=== PATIENT | male | born 1980 | race Two or more races ===

== ENCOUNTER 2023-04-29 07:36 | Emergency (ER) | payer OTHER ==
[~2023-04-29] VITALS: Ht 167.6 cm; Wt 61.2 kg
[2023-04-29] MEDS ORDERED: ACETAMINOPHEN ES 500 MG TABLET PO ONE (08:00)
[2023-04-29] MEDS ORDERED: IBUPROFEN 600 MG TABLET PO ONE (08:00)
[2023-04-29] MEDS ORDERED: ACETAMINOPHEN ES 500 MG TABLET ONE (08:19)
[2023-04-29] MEDS ORDERED: IBUPROFEN 600 MG TABLET ONE (08:19)
--- NOTE | 2023-04-29 09:00 | NUR ---
BIBS FOR HEAD INJURY. 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 A/O X 3, ABLE TO MAKE NEEDS KNOWN, TOLERATING WELL ON ROOM AIR.
[2023-04-29] MEDS ORDERED: AMOX-430 PO (09:56)
[2023-04-29] MEDS ORDERED: IBUP-1953 PO (09:56)
[2023-04-29] MEDS ORDERED: HYDR-4279 PO (09:57)
--- NOTE | 2023-04-29 10:53 | NUR ---
Patient discharged to home in stable condition. Written and verbal after care instructions given. Patient verbalizes understanding of instruction.
[2023-04-29 10:54] VITALS: BP 105/62; TEMP 98.6; O2SAT 97
== END 2023-04-29 10:54 | disposition home or self-care (01) ==
LOC: ER 07:41
DX: S02.2XXA Fracture of nasal bones, initial encounter for closed fracture (principal); S00.03XA Contusion of scalp, initial encounter; K04.7 Periapical abscess without sinus; W18.30XA Fall on same level, unspecified, initial encounter; Y93.89 Activity, other specified; Y92.89 Other specified places as the place of occurrence of the external cause; Y99.8 Other external cause status
CPT/HCPCS: 70450-TC; 70486-TC